=== PATIENT | male | born 1980 | race Caucasian/White ===

== ENCOUNTER 2017-06-30 23:17 | Emergency (ER) | payer OTHER ==
[~2017-06-30] VITALS: Ht 185.4 cm; Wt 113.4 kg
[2017-06-30] MEDS ORDERED: MIRTAZAPINE45 MG PO (23:25)
[2017-06-30] MEDS ORDERED: PRAZOSIN HCL5 MG PO (23:26)
[2017-06-30] MEDS ORDERED: HYDROXYZINE PAM50 MG PO (23:27)
[2017-06-30] MEDS ORDERED: SUMATRIPTAN SUC50 MG PO (23:29)
[2017-06-30] MEDS ORDERED: LEVETIRACETAM750 MG PO (23:30)
--- NOTE | 2017-07-02 11:38 | EKG ---
[facility] [address] [facility] [place] [address] Signed Sinus bradycardia with sinus arrhythmia Otherwise normal ECG No previous ECGs available Confirmed by EMILY LUCERO MD ([id number] on 07/02/2017 11:38:35 AM Electronically Signed By: EMILY LUCERO MD 07/02/17 1138 PATIENT NAME: MIKEY THAKUR Electrocardiogram DATE OF : 84 PHYSICIAN: EMILY LUCERO MD REPORT #: [id number] REPORT IS CONFIDENTIAL AND NOT TO BE RELEASED WITHOUT AUTHORIZATION
== END 2017-07-01 01:09 | disposition home or self-care (01) ==
LOC: ED 23:17
DX: R07.89 Other chest pain (principal); G40.909 Epilepsy, unspecified, not intractable, without status epilepticus; G43.909 Migraine, unspecified, not intractable, without status migrainosus; Z87.891 Personal history of nicotine dependence; Z88.5 Allergy status to narcotic agent; Z91.040 Latex allergy status; Z79.899 Other long term (current) drug therapy
CPT/HCPCS: 71045; 80053; 84484; 85025; 85379; 93005; 93010; 96374; 99284; J1885

== ENCOUNTER 2020-02-13 14:29 | Emergency (ER) | payer OTHER ==
[~2020-02-13] VITALS: Ht 185.4 cm; Wt 120.2 kg
[~2020-02-13 14:29] MED LIST: HYDROXYZINE PAM50 MG PO; LEVETIRACETAM750 MG PO; MIRTAZAPINE45 MG PO; PRAZOSIN HCL5 MG PO; SUMATRIPTAN SUC50 MG PO
== END 2020-02-13 16:43 | disposition home or self-care (01) ==
LOC: ED 14:29
DX: G40.909 Epilepsy, unspecified, not intractable, without status epilepticus (principal); G43.909 Migraine, unspecified, not intractable, without status migrainosus; Z87.891 Personal history of nicotine dependence; Z88.5 Allergy status to narcotic agent; Z91.040 Latex allergy status; Z79.899 Other long term (current) drug therapy
CPT/HCPCS: 70450; 96374; 99284-25; J1885